=== PATIENT | female | born 2000 | race Caucasian/White ===

== ENCOUNTER 2022-11-28 15:49 | Outpatient (CLI) | payer OTHER, SELFPAY ==
--- NOTE | 2022-11-28 16:00 | CRLHL7_ITS ---
For Patients: As a result of the Century Cures Act, medical imaging exams and procedure reports are released immediately into your electronic medical record. You may view this report before your referring provider. If you have questions, please contact your health care provider. CLINICAL HISTORY: IUD position check TECHNIQUE: 2D sutherland scale and color Doppler images were acquired of the pelvis using a transvaginal approach. FINDINGS: On transvaginal imaging, the myometrium has a normal uniform echotexture. IUD in good position within the endometrial canal. Uterus measures 7.4 x 3.3 x 4.7 cm. The right ovary measures 3.7 x 2.3 x 2.1 cm. Normal left ovarian tissue is not visualized. Normal arterial and venous blood flow on color Doppler analysis regarding the right ovary. Circumscribed anechoic cyst within the posterior cul-de-sac measuring 5.6 x 4.3 x 5.3 cm. IMPRESSION: Posterior cul-de-sac cystic structure measuring 5.6 cm, possibly arising from the left ovary or representing a left paraovarian cyst. Good position of the IUD within the endometrial canal. Dictated by Marcel Jesus MD @ 11/29/2022 11:29:10 AM (Electronically Signed)
== END 2022-11-28 15:50 | disposition home or self-care (01) ==
PROVIDERS: Visit Provider Obstetrics & Gynecology
DX: Z30.431 Encounter for routine checking of intrauterine contraceptive device (principal); N83.202 Unspecified ovarian cyst, left side
CPT/HCPCS: 76830

== ENCOUNTER 2023-04-03 09:08 | Outpatient (CLI) | payer OTHER, SELFPAY ==
--- NOTE | 2023-04-03 09:15 | CRLHL7_ITS ---
For Patients: As a result of the Century Cures Act, medical imaging exams and procedure reports are released immediately into your electronic medical record. You may view this report before your referring provider. If you have questions, please contact your health care provider. INDICATION: f/u left adnexa/left ovarian cyst COMPARISON: 11/28/2022 TECHNIQUE: 2D sutherland scale and color Doppler images were acquired of the pelvis using a transabdominal and transvaginal approach. FINDINGS: Sonographic images demonstrate a normal size and smooth outer contour of the uterus. Uterus measures 7.6 cm in length by 3.3 cm in AP diameter by 4.5 cm in transverse dimension. The myometrium has a normal uniform echotexture. Intrauterine device is present within the endometrial canal. The right ovary measures 1.9 x 1.4 x 1.1 cm in size and the left ovary measures 7.4 x 4.5 x 6.9 cm. Simple anechoic left ovarian cyst is present measuring 6.9 x 4.3 x 5.5 cm, previously measuring 5.6 x 4.3 x 5.3 cm. The ovaries demonstrate normal arterial and venous blood flow on color Doppler analysis. There are no suspicious fluid collections within the cul-de-sac. IMPRESSION: 6.9 cm simple left ovarian cyst. Previously, this measured 5.6 cm. No torsion. Dictated by Marcel Jesus MD @ 04/03/2023 11:00:23 AM (Electronically Signed)
== END 2023-04-03 09:09 | disposition home or self-care (01) ==
PROVIDERS: PCP Pediatrics; Visit Provider Obstetrics & Gynecology
DX: N83.202 Unspecified ovarian cyst, left side (principal); N94.6 Dysmenorrhea, unspecified
CPT/HCPCS: 76830; 76856; 93976

== ENCOUNTER 2023-05-03 14:45 | Outpatient (RCR) | payer OTHER, SELFPAY | END 2023-08-31 23:59 | disposition home or self-care (01) | PROVIDERS: PCP Pediatrics; Visit Provider Pediatrics | DX: M54.6 Pain in thoracic spine (principal); Z51.89 Encounter for other specified aftercare | CPT/HCPCS: 97110; 97140; 97162 ==

== ENCOUNTER 2023-05-23 07:16 | Day surgery (SDC) | payer OTHER, SELFPAY ==
[2023-05-23] VITALS (10 sets, daily range): BP systolic 122–149; BP diastolic 66–92; PULSE 46–85; RESP 12–16; TEMP 36.7–36.8; O2SAT 98–100; BMI 20.3
--- OUTSIDE RECORDS SUMMARY | 2023-05-23 07:18 | XMS_ITS | Patient Health Record ---
Author Name Unknown Organization [facility] Address [address] [address] [place] [place] [address] Support Name Relationship Address Phone Ifrah Salvador Guarantor Unknown [phone] REASON FOR REFERRAL No Information SOCIAL HISTORY Tobacco Use: Social History Observation Description Date Smoking Status WARNING: Information temporarily unavailable Sex Assigned At : Social History Observation Description Sex Assigned At Unknown Tobacco Use: Question Answer Notes Are you a: never smoker Additional Findings: Tobacco Non-User Current no n-smoker PLAN OF TREATMENT No Information Insurance Providers Payer Name Payer Address Payer Phone Subscriber Number Group Number Insured Name Patient Relationship to Insured Coverage Start Date Coverage End Date [facility] [address] [place] [address] [id number] Ifrah Salvador Self - patient is the insured
[2023-05-23 08:07] LABS: Ur HCG Qualitative* Negative (Negative)
[2023-05-23 08:08] LABS: Hemoglobin* 15.2 gm/dL (12.0-16.0)
[2023-05-23] MEDS: SODIUM CHLORIDE 0.9 % (FLUSH) 10 ML SYRINGE IVF (08:13)
[2023-05-23] MEDS: LACTATED RINGERS 1000 ML 1,000 ML 100 ML IV ×2 (08:13→10:03)
--- NOTE | 2023-05-23 08:37 | P.GYNHP_ITS ---
PLAN CHECKER: H&P: HPI Surgical History of Present Illness Time Seen by Provider: 07:15 Date Seen: 05/23/23 Reason for admission: pelvic mass and other (Schedule surgery ) Planned procedure: other (Diagnostic laparoscopy, left ovarian cystectomy, possible oophorectomy, Farida IUD removal, Paragard IUD ) Last H&P: No Data to Display Narrative: Ifrah Salvador is a 22 year old female G0 here for scheduled surgery. She reports no pain since the last time she saw me in clinic. Her menstrual cycles are light. No other interval changes since I last saw her in clinic. We reviewed consent and surgical plan again. All questions answered to patient's satisfaction. She continues to want to proceed with all scheduled procedures. Review of Systems Status of ROS: Reports: 6 or more systems reviewed and unremarkable except as noted in History and below [facility] Medical History (Updated 04/23/23 @ 16:37 by Nydia Chowdhury MD) Dysmenorrhea ?N94.6 - Dysmenorrhea, unspecified (ICD-10) IBS (irritable bowel syndrome) ?K58.9 - Irritable bowel syndrome without diarrhea (ICD-10) IUD (intrauterine device) in place (02/17/21) ?Z97.5 - Presence of (intrauterine) contraceptive device (ICD-10) Anxiety and depression ?F41.9 - Anxiety disorder, unspecified (ICD-10) ?F32.A - Depression, unspecified (ICD-10) Surgical History (Updated 11/20/22 @ 08:39 by Aida Umaña MD) No history of previous surgery Family History Father Depression Social History (Updated 11/20/22 @ 08:42 by Aida Umaña MD) Narrative: Cis-gender, heterosexual woman Relationship status: Single. Education: Sophomore at [employer]. Major: Environmental Studies Occupation: Student Tobacco: Never smoker E-cigarettes: No Alcohol: Yes: 1-2 servings/week Illicit/recreational drugs: No Safety concerns at home or work: No Dietary restriction(s): No Exercise: Yes: jogging/running 3-5 days/week. Smoking Status: Never smoker How often do you have a drink containing alcohol: 2-3 times a week AUDIT-C Alcohol total score: 3 Non-prescribed substance use: denies use Caffeine: Yes Are you using contraception or practicing any form of control: Yes Meds Home Medications and Allergies Allergies Allergy/AdvReac Type Severity Reaction Status Date / Time No Known Drug Allergies Allergy Verified 04/19/23 14:02 PLAN CHECKER - Exam Physical Exam: Vital signs: Temp Pulse Resp BP Pulse Ox O2 Del Method 98.2 F 85 16 122/74 99 Room Air 05/23/23 08:10 05/23/23 08:10 05/23/23 08:10 05/23/23 08:10 05/23/23 08:10 05/23/23 08:10 Narrative: Physical exam: General: No acute distress Psych: Alert and oriented x3, full affect HEENT: Normocephalic, atraumatic Heart: Regular rate and rhythm, no murmur rub or gallop Lungs: Clear to auscultation bilaterally Abdomen: Normoactive bowel sounds, soft, no tenderness, rebound, or guarding Skin: No lesions or rashes Lower extremities: No edema or erythema Pelvic exam: Deferred to OR. PLAN CHECKER - Results Labs Labs: Short CBC 05/23/23 Range/Units 07:58 Hgb 15.2 (12.0-16.0) gm/dL Assessment and Plan Assessment and plan (1) Ovarian cyst: Status: Acute Plan - Normal physical exam - Will proceed with scheduled procedures
[2023-05-23] MEDS: BUPIVACAINE 0.5 %/EPI 1:200K 30 ML INJECTION (09:50)
--- NOTE | 2023-05-23 10:52 | CRLHL7_ITS ---
For Patients: As a result of the Century Cures Act, medical imaging exams and procedure reports are released immediately into your electronic medical record. You may view this report before your referring provider. If you have questions, please contact your health care provider. Indication: Foreign body. Technique: Abdomen 1 view. Comparison: None. Findings/Impression: IUD is in the pelvis just to the left of midline. A forceps like device is partially overlying the pubic symphysis. Remainder the exam is unremarkable. No other sign of foreign body. Dictated by Phani Elam MD @ 05/23/2023 12:49:30 PM (Electronically Signed)
[2023-05-23] MEDS: DOXYCYCLINE HYCLATE 200 MG in 0.9 % SODIUM CHLORIDE 250 ml 250 ML 250 MG IVPB (10:59)
--- NOTE | 2023-05-23 11:14 | W.ANESCHARGE ---
Anesthesia Charges Start Date/Time Anesthesia Start Date: 05/23/23 Anesthesia Start Time: 09:05 Stop Date/Time Anesthesia Stop Date: 05/23/23 Anesthesia Stop Time: 11:19
--- NOTE | 2023-05-23 11:24 | W.ANESCHARGE ---
Anesthesia Charges Start Date/Time Anesthesia Start Date: 05/23/23 Anesthesia Start Time: 09:05 Stop Date/Time Anesthesia Stop Date: 05/23/23 Anesthesia Stop Time: 11:19
--- NOTE | 2023-05-23 13:02 | SUR.PHASEII ---
pt up to bathroom at 1245. Pt states her cramping is tolerable.
--- NOTE | 2023-05-23 14:31 | PM.GYNPRLA ---
Procedure Pre-op/Post-op diagnoses: Pre-Op/Post-Op Diagnoses Operation Date: 05/23/23 08:45 <No data on this case meets the specified criteria> Procedure: Procedures Operation Date: 05/23/23 08:45 Actual Procedure Side Surgeon p Diagnostic Laparoscopy, Left Paratubal Cystectomy Nydia Chowdhury MD s Farida IUD Removal with assistance of abdominal ultrasound and KUB, Paragard IUD Insertion Nydia Chowdhury MD Adjunct Instructor Chemistry: Matilda Tinajero Anesthesia type: General Complications: none Specimen: other (Left paratubal cyst) Disposition: same day Narrative: PREOPERATIVE DIAGNOSIS: 1. Suspected 7 cm left ovarian cyst 2. Farida IUD in place POSTOPERATIVE DIAGNOSIS: 1. 7 cm left paratubal cyst 2. Lost IUD strings (Farida) TITLE OF OPERATION: 1. Diagnostic laparoscopy 2. Left paratubal cystectomy 3. Farida IUD removal (lost strings) with ultrasound and KUB guidance 4. Paragard IUD insertion SURGEON: Nydia Chowdhury MD LEAD OXIDE MILL TENDER: Matilda Tinajero MD ANESTHESIA: General IV FLUIDS: 1200 mL crystalloid ESTIMATED BLOOD LOSS: <5 mL URINE OUTPUT: 200 mL SPECIMEN: Left paratubal cyst PREOP ANTIBIOTICS: 200 mg of Doxycycline FINDINGS: On exam under anesthesia: Normal external genitalia and vaginal canal. Cervix normal appearing without IUD strings visualized at the external os. The uterus is anteverted position, approximately 6 week size, mobile without masses or nodularity palpable. Adnexa are without fullness or mass palpable bilaterally. The uterus was sounded to 8 cm. On laparoscopy: The uterus, bilateral ovaries, and right fallopian tube all appeared normal. There was a 7 cm left simple paratubal cyst in the posterior cul-de-sac. Posterior cul-de-sac normal otherwise. Appendix appeared normal. COMPLICATIONS: None PROCEDURE IN DETAIL: Ifrah was taken to the operating room with IV running. She was positioned in dorsal lithotomy position with her legs fully supported in Yellofin stirrups. General anesthesia was administered. She was prepped and draped in the usual sterile fashion. Pelvic exam under anesthesia was performed for the above-noted findings. Bladder was drained with straight catheter. A sponge stick was placed in the vagina for manipulation. Patient's legs were then placed in neutral position. Attention was turned to patient's abdomen. Infraumbilical area was infiltrated with a small amount of Marcaine. A 5 mm infraumbilical incision was made with a scalpel and carried down to the underlying layer of fascia with the hemostat. 5 mm camera was placed within the 5 mm Fios Kii trocar, and advanced under direct visualization through the anterior abdominal wall into the peritoneal cavity, while tenting up the anterior abdominal wall. The trocar was removed. The balloon was inflated, holding the port in place. Pneumoperitoneum was achieved. Survey of the abdomen and pelvis revealed the above-noted findings. Two additional port sites were created. Each was infiltrated with small amount of Marcaine prior to incision. The first was in the patient's left lower quadrant with an 11 mm Fios Kii port after assuring large vessels were out of harm's way, just superomedial to the left ASIS. The second was a hand's breath superior to and slightly medial to the first. A 5 mm incision, after assuring that large vessels were out of harm's way. A 5 mm Fios Kii port was inserted at each site, under direct visualization and without complication. The balloon on each of the 3 ports was inflated, holding each in place. Attention was first turned to the left fallopian tube where there was an 7 cm paratubal cyst. The LigaSure was used to dissect the cyst off of the left fallopian tube. The paratubal cyst was removed intact in its entirety at the end of the dissection. This was removed with an EndoCatch bag. A spinal needle attached to 60 mL syringe was used to drain fluid from the paratubal cyst. This fluid was completely clear. After sufficient insufflation, the Endo-Catch bag with the paratubal cyst was removed from the abdomen through the 11 mm port site. The left adnexa was reexamined. After removal of the paratubal cyst, the left fallopian still appeared mostly normal with small amount of raw tissue where the paratubal cyst was dissected off of. No active bleeding noted. The 11 mm Fios Kii port in the left lower quadrant was removed after balloon on the port was deflated. The Ranjan-Giovani laparoscopic closure device was inserted through this port. With the help of this device, the fascia was closed with a single suture of 0-Vicryl. Survey of the pelvis revealed hemostasis. Procedure was deemed complete. The balloons of all port sites were deflated, and all ports were removed after pneumoperitoneum was released. The skin of each port site was closed in a subcuticular fashion with 4 0 monocryl. Surgical glue was applied above this. Finally, patient's legs were again placed in lithotomy position. Attention was then turned towards IUD removal and insertion. The uterine manipulator was removed. Speculum exam confirmed no strings at external os. Dr. Tinajero performed bedside ultrasonographic guidance. It was very difficult to visualize the IUD and there was uncertainty if IUD was still intrauterine. KUB was performed and IUD noted to be in the right area. I used a small curette to sweep across the uterus and the Farida IUD was removed intact. IUD strings folded around the stem. Paragard IUD placed per ranch rider protocol and strings trimmed to 3 cm passed the external os. Speculum was removed and excellent hemostasis was noted. The patient tolerated the procedure well. Sponge, lap and needle counts were correct x 2. The patient was taken to the recovery room in stable condition. Debriefed performed at the end of procedure.
== END 2023-05-23 13:00 | disposition home or self-care (01) ==
PROVIDERS: PCP Pediatrics; Visit Provider Obstetrics & Gynecology
PROC: (CPT 49320; principal; 2023-05-23 08:30)
PROC: (CPT 58662; 2023-05-23 08:30)
DX: N83.8 Other noninflammatory disorders of ovary, fallopian tube and broad ligament (principal); T83.32XA Displacement of intrauterine contraceptive device, initial encounter; N94.6 Dysmenorrhea, unspecified
CPT/HCPCS: 58662; 58301; 58300; 00840; 36415; 74018; 81025; 85018; 86850; 86900; 86901; 88307; J1100; J1170; J1885; J2250; J2405; J2704; J3010; J3490; J7050; J7120

== ENCOUNTER 2023-12-24 14:45 | Outpatient (CLI) | payer OTHER, SELFPAY ==
--- OUTSIDE RECORDS SUMMARY | 2023-12-24 14:48 | XMS_ITS | Clinical Summary ---
Author Organization [facility] Address [place], [place] [address] Care Team Providers Care Screwmaker Automatic Name Role Phone Nancy Gr MD Primary Care Prov ider Allergies No known active allergies Medications Medication Sig Dispensed Refills Start Date End Date Status dextroamphetamine-a mphetamine (AdderalL) 10 mg tabletIndications:A DHD (attention deficit hyperactivity disorder), combined type Take 1 Tablet (10 mg) by mouth once daily. 30 Tablet 06/10/2023 Active dextroamphetamine-a mphetamine (Adderall XR) 10 mg Extended-Release capsuleIndications: ADHD (attention deficit hyperactivity disorder), combined type Take 1 Capsule (10 mg) by mouth once daily. 30 Capsule 07/01/2023 Active copper intrauterine device (PARAGARD) Inject 1 Device intrauterine one time. 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 /a little pink discharge. ) 12/18/2023 Travel 12/13/2023 Telephone [facility] [address] [facility] [place] [address] Cathy Butcher MD Appointment Request (Patient just turned 23) from Last 3 Months Immunizations Name Administration Dates Next Due COVID-19 vaccine (Moderna 100mcg/0.5mL) PF, MDV 07/17/2021,11/17/2020,10/18/2020 DTaP 12/11/2005, 3,06/10/2002,04/09,02/11/2002 Hepatitis A (Peds) 06/15/2013,12/09/2012 Hepatitis B (Peds) 2001 Hepatitis B, Unspecified 03/15/2003,02/11/2002 Hib Conjugate, Unspecified 03/15/2003,,05/13/2002,04/09,02/11/2002 Human Papilloma Virus Vaccin e, Unspecified 06/15/2013,02/09/2013,12/09/2012 Inactivated Polio Vaccine 12/11/2005,,04/09/2002,02/11 Influenza Virus, Unspecified 05/14/2017, 05/15/2016,04/30/2015,04/24,05/02/2013,04/19/2012 Influenza, IIV3 (Age >=3 years) 05/31/2021 Influenza, IIV4 06/14/2022,,05/25/2019,05/06 MMR 12/09/2002 MMR, Unspecified 02/09/2013,12/11/2005 Meningococcal B 12/23/2015 Meningococcal Vaccine (Menactra) 03/25/2018 Meningococcal Vaccine (Menomune) 02/09/2013 Pneumococcal conj 13-Valent (Prevnar 13) 05/13/2012,06/14/2003,03/15/2003,04/09,02/11/2002 Tdap 12/09/2012 Tuberculin (PPD) 08/10/2019 Varicella Vaccine 12/13/2006,12/09/2002 Family History Medical History Relation Name Comments Depression Father Anxiety disorder Mother Cancer-prostate Paternal Grandfather Asthma Sister 1 Lavonne Other Sister 1 Lavonne heart murmur Insomnia Sister 2 Mandy Relation Name Status Comments Father Alive Maternal Grandfather Alive Maternal Grandmother Alive Mother Alive Paternal Grandfather airplan e crash Paternal Grandmother Alive Sister 1 Lavonne Alive Sister 2 Mandy Alive Social History Tobacco Use Types Packs/Day Years Used Date Smoking Tobacco: Never Smokeless Tobacco: Never Tobacco Cessation:Counseling Given: No Alcohol Use Standard Drinks/Week Comments Yes 0 (1 standard drink = 0.6 oz pur e alcohol) 3 drinks weekend PHQ-2 Answer Date Recorded PHQ-2 TOTAL SCORE 0 07/01/2023 Social Connections Answer Date Recorded Frequency of Communication with Friends and Fami ly 0 06/06/2023 Financial Resource Strain Answer Date R ecorded Difficulty of Paying Living Expenses 3 06/06/2023 Difficulty of Paying Living Expenses Not on file 06/06/2023 Food Insecurity Answer Date Recorded Worried About Running Out of Food in the Last Ye ar 1 06/06/2023 Transportation Needs Answer Date Record ed Lack of Transportation (Medical) 1 06/06/2023 Housing Stability Answer Date Recorded Unable to Pay for Housing in the Last Year 1 06/06/2023 Sex and Gender Information Value Date Recorded Sex Assigned at Not on file Gender Identity Not on file Sexual Orientation Not on file Obstetrics History Last Filed Vital Signs Vital Sign Reading Time Taken Comments Blood Pressure 128/73 12/18/2023 9:55 AM CDT Pulse 71 12/18/2023 9:55 AM CDT Temperature 36.4 ??C (97.6 ??F) 04/02/2023 12:59 PM C DT Respiratory Rate 16 10/20/2022 1:16 PM CDT Oxygen Saturation 99% 12/18/2023 9:55 AM CDT Inhaled Oxygen Concentration - - Weight 67.2 kg (148 lb 1.6 oz) 07/01/2023 11:06 AM RATTLING MACHINE TENDER Height 178.4 cm (5' 10.24) 07/01/2023 11:06 AM RATTLING MACHINE TENDER Body Mass Index 21.11 07/01/2023 11:06 AM RATTLING MACHINE TENDER Plan of Treatment Health Maintenance Due Date Last Done Comments HIV for age 15-65 2016 Chlamydia for age 16-24 2017 Hepatitis C screening for ag e 18-79 12/07/2019 Tetanus booster 12/09/2022 12/09/2012 COVID-19 vaccine series ( season) 2023 07/17/2021, 11/17/2020, 10/18/2020 Influenza for age 9-49 03/29/2024 2, 05/31/2021, 05/29/2021, Additional history exists BMI (ht and wt on same day) for age 18+ 07/01/2024 07/01/2023, 06/06/2023, 04/11/2023, Additional history exists Depression screening for age 12+ 07/01/2024 07/01/2023, 06/06/2023, 05/30/2023, Additional history exists Pap test for age 21-65 11/19/2025 11/19/2022 Pneumococcal series for age 6-64 Completed 05/13/2012, 06/14/2003, 03/15/2003, Additional history exists Tdap Completed 12/09/2012 HPV series for age 9-26 Completed 06/15/20 13, 02/09/2013, 12/09/2012 Procedures Procedure Name Priority Date/Time Associated Diagnosis Comments FERRITIN Routine 12/18/2023 10:22 AM CDT Elevated ferritin IRON PLUS IRON BINDING CAP Routine 12/18/2023 10:22 AM CDT Elevated ferritin HANGER THIN PREP PAP SCREEN IMAGED Routine 11/19/2022 3:00 PM CDT from Last 3 Months or Most Recently Relevant to Health Maintenance Results * IRON PLUS IRON BINDING CAP (12/18/2023 10:22 AM CDT) IRON 124 37 - 145 ug/dL 12/18/2023 5:23 PM CDT [facility] UIBC (UNSATURATED) 208 112 - 347 ug/dL 12/18/2023 5:23 PM CDT [facility] IRON BINDING CAPACITY 332 250 - 400 ug/dL 12/18/2023 5:23 PM CDT [facility] IRON,% SATURATION 37 14 - 50 % 12/18/2023 5:23 PM CDT [facility] Blood BLOOD SPECIMEN / Unknown Venipuncture / Unknown 12/18/2023 10:22 AM CDT 12/18/2023 10:23 AM CDT Nancy Gr MD CHEMISTRY Performing Organization Address City/[facility]/ZIP Co de Phone Number [facility] [address] [place] [address], * FERRITIN (12/18/2023 10:22 AM CDT) FERRITIN 24.1 15.0 - 150.0 ng/mL 12/18/2023 5:23 PM CDT [facility] Blood BLOOD SPECIMEN / Unknown Venipuncture / Unknown 12/18/2023 10:22 AM CDT 12/18/2023 10:23 AM CDT Nancy Gr MD CHEMISTRY Performing Organization Address City/[facility]/ZIP Co de Phone Number [facility] [address] [place] [address], * HANGER THIN PREP PAP SCREEN IMAGED (aka [id number]) (11/19/2022 3:00 PM CDT) Case Report Gynecologic Cytology Report ? Case: [id number] ? Authorizing Provider: ??Aida Umaña ?Collected: ? 11/19/2022 1500 ? MD Meg ? Ordering Location: ? [facility] ?Received: ?11/21/2022 1007 ? First Screen: ?Josh Robin ? Specimen: ?HANGER ThinPrep Vial Screening, Cervical ? 12/20/2022 9:27 AM CDT [facility] INTERPRETATION/ RESULT NEGATIVE FOR INTRAEPITHELIAL LESION OR MALIGNANCY (NIL) (none) 12/20/2022 9:27 AM CDT [facility]-C ENTRAL LABORATORY IMEN ADEQUACY Satisfactory for evaluation No endocervical component seen 12/20/2022 9:27 AM CDT [facility] HPV REQUEST HPV not requested 2022 9:27 AM CDT [facility] Last Pap Result First Pap/Unknown 9:27 AM CDT [facility] LAB[facility]ATORY Comment:First Pap Abnormal Pap or [place] Bx in last 5 years No 12/20/2022 9:27 AM CDT [facility] ENTRAL LABORATORY Menstrual Status Regular Periods 12/20/2022 9:27 AM CDT [facility]-C ENTRAL LABORATORY [place] Bx Done Today No 12/20/2022 9:27 AM CDT [facility] ENTRAL LABORATORY Additional Information 12/20/2022 9:27 AM CDT [facility]-C ENTRAL LABORATORY Comment: Interpreted at [facility] - [address] , [place] [address] Automated Review Successful 12/20/2022 9:27 AM CDT [facility] Comment:Specimen processed s uccessfully by automated lead manufacturing technician device, ThinPrep Imaging System, [employer] Note The pap test is a screening technique, not a diagnostic procedure. It is used primarily to screen for squamous cancers and precursor lesions. Published studies have shown that it is subject to both false negative and false positive results. The pap test should not be used as the sole means to diagnose or exclude pre-malignant and malignant lesions. 12/20/2022 9:27 AM CDT [facility] Other (Cervical) 11/19/2022 3:00 PM CDT 11/21/2022 10:07 AM CDT Aida Umaña MD PATHOLOGY/ CYTOLOGY [facility] [address] [place] [address], from Last 3 Months or Most Recently Relevant to Health Maintenance Care Teams Screwmaker Automatic Relationship Specialty Start Date End Date Nancy Gr MD [facility] [place] [address] PCP - General Family Practice 12/18/23
--- OUTSIDE RECORDS SUMMARY | 2023-12-24 14:49 | XMS_ITS | Patient Health Record ---
Author Organization [facility] Address [address] [place] [address] Support Name Relationship Address Phone Ifrah Salvador Guarantor Unknown [phone] REASON FOR REFERRAL No Information SOCIAL HISTORY [...] Insured Coverage Start Date Coverage End Date [facility] [address] [place] [address] [id number] Irfah Salvador Self - patient is the insured
--- OUTSIDE RECORDS SUMMARY | 2023-12-24 14:49 | XMS_ITS | Clinical Summary ---
Author Organization [facility] [place] [address] Care Team Providers Care Saddle Cutter Name Role Phone Jose Ulloa Primary Care Provider [phone] Allergies No known active allergies Medications Medication Sig Dispensed Refills Start Date End Date Status calcium carbonate (TUMS) 200 mg calcium (500 mg) Tablet, Chewable take 1 Tab by mouth every day 0 Active cyanocobalamin, vitamin B-12, 2,500 mcg Tablet take by mouth once a week 0 Active Cholecalciferol, Vitamin D3, 125 mcg (5,000 unit) Tablet take by mouth once a week 0 Active ibuprofen (MOTRIN) 200 mg Tablet take 200 mg by mouth three times daily as needed for Pain Take with food 0 Active dicyclomine (BENTYL) 10 mg Capsule take 1 Cap by mouth three times daily as needed for Pain 90 Cap 3 11/06/2017 Active Additional Information Patient not taking.Reported on 02/19/2022 MULTIVITAMIN PO take 1 tablet by mouth every day 0 Active MAGNESIUM PO take 1 tablet by mouth every day 0 Active amitriptyline (ELAVIL) 75 mg Tablet take 1 tablet by mouth every night 90 tablet 3 12/22/2020 Active Additional Information Patient not taking.Reported on 02/19/2022 sulfamethoxazole-tr imethoprim (BACTRIM DS) 800-160 mg TabletIndications:P aronychia of great toe of left foot take 1 tablet in the morning and 1 tablet before bedtime by mouth. 20 tablet 0 02/19/2022 Active Active Problems Problem Noted Date Diagnosed Date Irritable bowel syndrome with constipation 04/11 /2018 Weight loss 08/14/2017 Situational anxiety 07/18/2017 Cheilitis 07/18/2017 Scoliosis concern 07/18/2017 Bloating 05/30/2017 Pyrosis 05/30/2017 Resolved Problems Problem Noted Date Diagnosed Date Resolved Date Sore throat 05/30/2017 07/18/2017 Immunizations Name Administration Dates Next Due FLU VAC =>3YR QUADRIVALENT 05/14/2017 HIB Vaccine 05/13/2012, 3,06/10/2002,04/09,02/11/2002 HPV IMMUNIZATION (HUMAN WENDY LLOMA VIRUS) 06/15/2013,02/09/2013,12/09/2012 Hepatitis A Vaccine 06/15/2013,12/09/2012 Hepatitis B Vaccine 03/15/2003,02/11/2002,2001 IPV 12/11/2005, 3,04/09/2002,02/11 MMR Vaccine 12/11/2005,12/09/2002 Meningococcal Vaccine 02/09/2013 Varicella Vaccine Live 12/09/2002 Varivax (Varicella) 12/13/2006 dtap vaccine 12/11/2005, 3,06/10/2002,04/09,02/11/2002 Family History Medical History Relation Name Comments High Cholesterol Father High Cholesterol Paternal Grandfather Prostate Cancer Paternal Grandfather High Cholesterol Paternal Grandmother Asthma Sister Heart Disease Sister Relation Name Status Comments Father Alive reflux, benign rectal polyp Maternal Aunt Alive Maternal Grandfather Alive Maternal Grandmother Alive constip ation Maternal Uncle Alive Mother Alive history gastrit is, H pylori, reflux Paternal Aunt Alive Paternal Grandfather hemmorh oids Paternal Grandmother Alive Sister Alive Social History Tobacco Use Types Packs/Day Years Used Date Smoking Tobacco: Never Smokeless Tobacco: Never Alcohol Use Standard Drinks/Week Comments No 0 (1 standard drink = 0.6 oz pur e alcohol) Sex and Gender Information Value Date Recorded Sex Assigned at Not on file Gender Identity Not on file Sexual Orientation Not on file Job Start Date Occupation Industry Not on file Not on file Not on file Last Filed Vital Signs Vital Sign Reading Time Taken Comments Blood Pressure 129/72 02/19/2022 2:46 PM EDT Pulse 74 02/19/2022 2:46 PM EDT Temperature 36.7 ??C (98 ??F) 02/19/2022 2:46 PM EDT Respiratory Rate 18 02/19/2022 2:46 PM EDT Oxygen Saturation 98% 02/19/2022 2:46 PM EDT Inhaled Oxygen Concentration - - Weight 65.8 kg (145 lb) 02/19/2022 2:46 PM EDT Height 180.3 cm (5' 11) 02/19/2022 2:46 PM EDT Body Mass Index 20.22 02/19/2022 2:46 PM EDT Plan of Treatment Health Maintenance Due Date Last Done Comments HIV Screening 06/08/2002 DTaP/Tdap/Td Vaccine (6 - Tdap) 2012 12/11/2005, 06/14/2003, 06/10/2002, Additional history exists Hepatitis C Screening 12/07/2019 Cervical Cancer Screening 2022 COVID-19 Vaccine ( season) 2023 07/17/2021, 11/17/2020, 10/18/2020 Influenza Vaccine (Season Ended) 2024 05/14/2017 Zoster Vaccines (1 of 2) 12/07/2051 Hepatitis B Vaccines Completed 03/15/2003, 03/15/2003, 02/11/2002, Additional history exists IPV Vaccines Completed 12/11/2005, 05/29, 04/09/2002, Additional history exists HIB Vaccines Completed 05/13/2012, 02/26, 06/10/2002, Additional history exists Meningococcal (MEN-ACWY) Vaccine Aged Out 02/09/2013 No longer eligible based on patient's age to complete this topic HPV Vaccines Completed 06/15/2013, 05/29, 02/09/2013, Additional history exists Hepatitis A Vaccines Completed 06/15/2013, 12/10/19 13 Pneum Vac:Ped 0-5/At-Risk 6-64yrs Aged Out No longer eligible based on patient's age to complete this topic Rotavirus Vaccine Aged Out No longer eligible based on patient's age to complete this topic Care Teams Saddle Cutter Relationship Specialty Start Date End Date Jose Ulloa DO [address] [address] PCP - General Family Medicine 04/22/18
--- NOTE | 2023-12-24 15:00 | CRLHL7_ITS ---
For Patients: As a result of the Century Cures Act, medical imaging exams and procedure reports are released immediately into your electronic medical record. You may view this report before your referring provider. If you have questions, please contact your health care provider. INDICATION: Pelvic and perineal pain. TECHNIQUE: Transabdominal pelvic ultrasound. Grayscale and duplex Doppler images. COMPARISON: Report but no images from 04/03/2023 pelvic ultrasound. FINDINGS: Uterus is anteverted measures 8.7 x 4.1 x 6.6 cm. There is an IUD that appears appropriately positioned within the uterus. Endometrial stripe thickness is 1 cm. Both ovaries appear normal and have normal color and spectral Doppler flow. No adnexal mass or free fluid. By history, previously mentioned left ovarian cyst has been surgically removed. IMPRESSION: 1. IUD appears appropriately positioned. 2. No adnexal mass. 3. Normal pelvic ultrasound. Dictated by Wilmer Borges MD @ 12/25/2023 10:23:04 AM (Electronically Signed)
== END 2023-12-24 14:46 | disposition home or self-care (01) ==
LOC: US 14:47
PROVIDERS: PCP Pediatrics; Visit Provider Physician Assistant
DX: R10.2 Pelvic and perineal pain (principal)
CPT/HCPCS: 76856; 93976

== ENCOUNTER 2024-03-17 08:00 | Outpatient (RCR) | payer BC, OTHER, SELFPAY | END 2024-06-30 12:25 | disposition home or self-care (01) | PROVIDERS: PCP Pediatrics; Visit Provider Physician Assistant | DX: N94.19 Other specified dyspareunia (principal); R10.9 Unspecified abdominal pain; Z51.89 Encounter for other specified aftercare; R10.2 Pelvic and perineal pain | CPT/HCPCS: 97112; 97140; 97161; 97530 ==